=== PATIENT | female | born 1945 | race African-American/Black ===

== ENCOUNTER 2021-09-13 10:13 | Inpatient (IN) ==
[2021-09-13] MEDS ORDERED: ONDANSETRON 4 MG/2 ML VIAL IV STA (10:41)
[2021-09-13] MEDS ORDERED: SODIUM CHLORIDE 0.9% 1,000 ML IV STA (10:41)
[2021-09-13 11:28] LABS: Basophils % 0.3 % (0.0-0.8); Eosinophils % 0.1 % (0.00-10.9); Hematocrit 37.1 VOL% (35.7-47.0); Hemoglobin 11.8 GM/DL (12.0-16.0); Immature Granulocytes % 0.5 %; Immature Granulocytes Absolute 0.07 #; Lymphocytes # 1.4 10*3/uL (1.4-4.0); Lymphocytes % 9.4 % (21.3-54.2); Mean Corpuscular HGB Conc 31.8 GM/DL (32-36); Mean Corpuscular Volume 72.7 FL (87-102); Mean Platelet Volume 9.2 FL (9.6-12.0); Monocytes % 6.4 % (1.7-12.7); Neutrophils % 83.3 % (38.7-73.9); Platelet Count 457 T/CUMM (130-400); Red Cell Distribution Width 16.2 % (9.3-17.3); White Blood Count 15.2 T/CUMM (4-12)
[2021-09-13 11:37] LABS: Bilirubin,Urine Negative (Negative); Blood, Urine Small mg/dL (Negative); Glucose,Urine (UA) Negative (Negative); Ketones,Urine Negative (Negative); Mucus,Urine Many /LPF (Occasional); Nitrite,Urine Negative (Negative); Protein,Urine 30 MG/DL; RBC,Urine 7 /HPF (0-4); Squamous Epithelial Cell,Urine Moderate /HPF (0-10); Urine Appearance CLOUDY (Clear); Urine Color Amber (Yellow); Urine Specific Gravity 1.027 (1.001-1.035)
[2021-09-13 11:50] LABS: Albumin 3.1 G/DL (3.4-5.0); Bilirubin,Total 0.4 MG/DL (0.20-1.00); Calcium 10.1 MG/DL (8.5-10.1); Osmolality,Calculated 282.4 MOS/KG (273-304); Potassium 3.3 MMOL/L (3.5-5.1); Total Protein 8.6 G/DL (6.4-8.2)
[2021-09-13] MEDS ORDERED: cefTRIAXone 1,000 MG in SODIUM CHLORIDE 0.9% 100 ML IV STA (11:55)
[2021-09-13] MEDS ORDERED: ACETAMINOPHEN 325 MG TABLET PO PRN (12:17)
[2021-09-13] MEDS ORDERED: DEXTROSE 50% 25 GM/50 ML VIAL IV PRN (12:17)
[2021-09-13] MEDS ORDERED: GLUCAGON 1 MG VIAL IM PRN (12:17)
[2021-09-13] MEDS ORDERED: hydrALAZINE 20 MG/1 ML VIAL IV PRN (12:17)
[2021-09-13] MEDS ORDERED: POLYETHYLENE GLYCOL POWDER 255 GM BOTTLE PO ONE (13:24)
[2021-09-13] MEDS ORDERED: BISACODYL 5 MG TABLET PO ONE (13:25)
[2021-09-13 13:42] LABS: Risk Ratio 4.27; Thyroid Stimulating Hormone 1.69 uIU/ml (0.358-3.74); VLDL Cholesterol 27.2 MG/DL
[2021-09-13] MEDS: SODIUM CHLOR 0.45% KCL 20 MEQ 20 MEQ/1,000 ML BAG IV SCH (16:20)
[2021-09-13] MEDS: ONDANSETRON 4 MG/2 ML VIAL IV PRN (18:41)
[2021-09-14] MEDS: SODIUM CHLOR 0.45% KCL 20 MEQ 20 MEQ/1,000 ML BAG IV SCH ×3 (00:41→20:04)
[2021-09-14] MEDS: ONDANSETRON 4 MG/2 ML VIAL IV PRN ×5 (00:45→22:19)
[2021-09-14 06:01] LABS: Basophils % 0.2 % (0.0-0.8); Hematocrit 33.9 VOL% (35.7-47.0); Hemoglobin 10.8 GM/DL (12.0-16.0); Immature Granulocytes % 0.5 %; Immature Granulocytes Absolute 0.07 #; Lymphocytes % 7.9 % (21.3-54.2); Mean Corpuscular HGB Conc 31.9 GM/DL (32-36); Mean Platelet Volume 9.8 FL (9.6-12.0); Monocytes % 6.5 % (1.7-12.7); Neutrophils % 84.9 % (38.7-73.9); Platelet Count 420 T/CUMM (130-400); Red Blood Count 4.58 MC/CUMM (3.8-5.5); Red Cell Distribution Width 16.3 % (9.3-17.3); White Blood Count 12.9 T/CUMM (4-12)
[2021-09-14 06:14] LABS: Osmolality,Calculated 278.5 MOS/KG (273-304); Potassium 3.1 MMOL/L (3.5-5.1)
[2021-09-14] MEDS ORDERED: POLYETHYLENE GLYCOL POWDER 255 GM BOTTLE PO ONE (08:00)
[2021-09-14] MEDS ORDERED: cefTRIAXone 1,000 MG in SODIUM CHLORIDE 0.9% 100 ML IV SCH (09:00)
[2021-09-14] MEDS: POTASSIUM CHLORIDE RIDER 10 MEQ/100 ML PREMIX IV PRN ×4 (10:33→16:56)
[2021-09-14 12:37] LABS: AFP Tumor < 2.2 NG/ML (0-8)
[2021-09-14] MEDS ORDERED: MAGNESIUM CITRATE 300 ML BOTTLE PO ONE (21:00)
[2021-09-15] MEDS: SODIUM CHLOR 0.45% KCL 20 MEQ 20 MEQ/1,000 ML BAG IV SCH (02:56)
[2021-09-15 04:32] LABS: Basophils % 0.2 % (0.0-0.8); Hematocrit 37.2 VOL% (35.7-47.0); Hemoglobin 11.9 GM/DL (12.0-16.0); Immature Granulocytes % 0.6 %; Immature Granulocytes Absolute 0.12 #; Lymphocytes # 1.4 10*3/uL (1.4-4.0); Lymphocytes % 7.7 % (21.3-54.2); Mean Corpuscular Volume 73.5 FL (87-102); Monocytes % 7.9 % (1.7-12.7); Neutrophils % 83.6 % (38.7-73.9); Platelet Count 463 T/CUMM (130-400); Red Blood Count 5.06 MC/CUMM (3.8-5.5); Red Cell Distribution Width 16.8 % (9.3-17.3); White Blood Count 18.6 T/CUMM (4-12)
[2021-09-15 04:42] LABS: PT Patient Result 11.5 SECS (10.5-12.0)
[2021-09-15 04:50] LABS: Calcium 9.2 MG/DL (8.5-10.1); Osmolality,Calculated 274.1 MOS/KG (273-304); Potassium 4.7 MMOL/L (3.5-5.1)
[2021-09-15] MEDS ORDERED: SODIUM PHOSPHATE ENEMA 133 ML BOTTLE RECTAL ONE (06:00)
[2021-09-15] MEDS ORDERED: PIPERACILLIN/TAZOBACTAM 3,375 MG in SODIUM CHLORIDE 0.9% 100 ML IV SCH (07:30)
[2021-09-15] MEDS: ONDANSETRON 4 MG/2 ML VIAL IV PRN (07:54)
[2021-09-15] MEDS ORDERED: SODIUM CHLORIDE 0.9% 1,000 ML IV SCH (08:00)
[2021-09-15] MEDS: SODIUM CHLORIDE 0.9% 1,000 ML IV SCH ×2 (09:35→17:55)
[2021-09-15] MEDS: PIPERACILLIN/TAZOBACTAM 3,375 MG in SODIUM CHLORIDE 0.9% 100 ML IV SCH ×2 (09:36→17:55)
[2021-09-15] MEDS ORDERED: fentaNYL 100 MCG/2 ML VIAL ONE ×2 (12:20→16:09)
[2021-09-15] MEDS ORDERED: ROCURONIUM 50 MG/5 ML VIAL IV ONE ×2 (12:59→15:58)
[2021-09-15] MEDS ORDERED: ETOMIDATE 20 MG/10 ML VIAL IV ONE ×3 (12:59→15:06)
[2021-09-15] MEDS ORDERED: SUCCINYLCHOLINE 200 MG/10 ML VIAL ONE ×2 (12:59→14:57)
[2021-09-15] MEDS ORDERED: ONDANSETRON 4 MG/2 ML VIAL ONE (12:59)
[2021-09-15] MEDS ORDERED: SEVOFLURANE 1 UNIT/15 MINUTE INH ONE ×2 (12:59→17:58)
[2021-09-15] MEDS ORDERED: propofoL 200 MG/20 ML VIAL IV ONE ×2 (12:59→15:07)
[2021-09-15] MEDS ORDERED: LIDOCAINE 2% 5 ML VIAL ONE (12:59)
[2021-09-15] MEDS ORDERED: DEXAMETHASONE 4 MG/1 ML VIAL ONE (12:59)
[2021-09-15] MEDS ORDERED: PHENYLEPHRINE 1 MG/10 ML SYRINGE IV ONE (13:00)
[2021-09-15] MEDS ORDERED: ONDANSETRON 4 MG/2 ML VIAL IV ONE (13:59)
[2021-09-15] MEDS ORDERED: ESMOLOL 100 MG/10 ML VIAL IV ONE (14:00)
[2021-09-15] MEDS ORDERED: LACTATED RINGERS 1,000 ML IV SCH (14:30)
[2021-09-15] MEDS ORDERED: SUCCINYLCHOLINE 200 MG/10 ML VIAL IV ONE (15:08)
[2021-09-15] MEDS ORDERED: MIDAZOLAM 100 MG in SODIUM CHLORIDE 0.9% 80 ML IV PRN (15:23)
[2021-09-15] MEDS ORDERED: MIDAZOLAM 2 MG/2 ML VIAL ONE ×2 (15:25)
[2021-09-15] MEDS ORDERED: SODIUM CHLORIDE 0.9% 250 ML IV ONE (15:51)
[2021-09-15] MEDS ORDERED: PHENYLEPHRINE 10 MG/1 ML VIAL IV ONE ×2 (15:51→16:06)
[2021-09-15] MEDS ORDERED: METHYLENE BLUE 10 ML VIAL IV ONE (16:32)
[2021-09-15 18:11] LABS: Bilirubin,Urine Negative (Negative); Blood, Urine Negative (Negative); Glucose,Urine (UA) Negative (Negative); Hyaline Casts,Urine 14 /LPF (0-3); Ketones,Urine 20 mg/dL (Negative); Mucus,Urine Occasional /LPF (Occasional); Nitrite,Urine Negative (Negative); Protein,Urine Negative; RBC,Urine 1 /HPF (0-4); Squamous Epithelial Cell,Urine Occasional /HPF (0-10); Urine Appearance CLEAR (Clear); Urine Color Yellow (Yellow); Urine Specific Gravity 1.024 (1.001-1.035); Urine Urobilinogen < 2.0 EU/DL (0.2-1.0)
[2021-09-15] MEDS: INSULIN LISPRO 100 UNIT/ML SUBCUT SCH ×2 (18:11→23:21)
[2021-09-15 18:16] LABS: Basophils % 0.1 % (0.0-0.8); Eosinophils % 0.1 % (0.00-10.9); Hematocrit 35.6 VOL% (35.7-47.0); Immature Granulocytes % 1.1 %; Immature Granulocytes Absolute 0.22 #; Lymphocytes # 0.8 10*3/uL (1.4-4.0); Lymphocytes % 4.1 % (21.3-54.2); Mean Corpuscular HGB Conc 30.9 GM/DL (32-36); Mean Corpuscular Volume 74.3 FL (87-102); Mean Platelet Volume 9.2 FL (9.6-12.0); Monocytes % 5.7 % (1.7-12.7); NRBC # 0.02 10*3/uL; Neutrophils % 88.9 % (38.7-73.9); Platelet Count 488 T/CUMM (130-400); Red Blood Count 4.79 MC/CUMM (3.8-5.5); White Blood Count 19.3 T/CUMM (4-12)
[2021-09-15 18:28] LABS: Alanine Aminotransferase 15 U/L (13-56); Albumin 2.2 G/DL (3.4-5.0); Alkaline Phosphatase 103 U/L (45-117); Aspartate Amino Transferase 46 U/L (0-37); Blood Urea Nitrogen 28 MG/DL (7-18); Calcium 8.5 MG/DL (8.5-10.1); Carbon Dioxide 19 MMOL/L (21-32); Estimated Glom Filtration Rate 25 ML/MIN; Glucose 151 MG/DL (74-106); Sodium 136 MMOL/L (136-145); Total Protein 6.4 G/DL (6.4-8.2)
[2021-09-15 18:31] LABS: ABG Base Excess -10.2 MMOL/L (-2.5-2.5); ABG HCO3 16.4 MMOL/L (20-26); ABG PCO2 34.8 MM HG (35-48); ABG PO2 94.1 MM HG (80-95); ABG TCO2 14.4 MMOL/L (23-27)
[2021-09-15] MEDS ORDERED: INSULIN REGULAR 10 UNIT, CALCIUM GLUCONATE 1,000 MG in DEXTROSE 10% 250 ML IV ONE (18:35)
[2021-09-15 18:37] LABS: Band Neutrophils 10 % (0-10); Lymphocytes 3 % (20-55); Metamyelocytes 1 %; Segmented Neutrophils 81 % (50-85); Total Cells Counted 100
[2021-09-15] MEDS ORDERED: FUROSEMIDE 40 MG/4 ML VIAL IV ONE (18:43)
[2021-09-15 18:47] LABS: Microcytosis 1+; Polychromasia Slight
[2021-09-15 18:48] LABS: Burr Cells Slight; Ovalocytes Slight; Platelet Estimate Increased
[2021-09-15] MEDS: HYDROmorphone 2 MG/1 ML VIAL IV PRN (21:37)
[2021-09-15 22:11] LABS: Potassium 4.7 MMOL/L (3.5-5.1)
[2021-09-15] MEDS ORDERED: SODIUM CHLORIDE 0.9% 1,000 ML IV ONE (22:33)
[2021-09-16] MEDS: PIPERACILLIN/TAZOBACTAM 3,375 MG in SODIUM CHLORIDE 0.9% 100 ML IV SCH ×3 (01:25→16:28)
[2021-09-16] MEDS: SODIUM CHLORIDE 0.9% 1,000 ML IV SCH ×2 (02:57→08:40)
[2021-09-16 03:27] LABS: Basophils % 0.2 % (0.0-0.8); Hematocrit 34.1 VOL% (35.7-47.0); Hemoglobin 10.7 GM/DL (12.0-16.0); Immature Granulocytes % 0.4 %; Immature Granulocytes Absolute 0.07 #; Lymphocytes # 1.3 10*3/uL (1.4-4.0); Lymphocytes % 8.1 % (21.3-54.2); Mean Corpuscular HGB Conc 31.4 GM/DL (32-36); Mean Corpuscular Volume 74.6 FL (87-102); Mean Platelet Volume 9.6 FL (9.6-12.0); Monocytes % 12.4 % (1.7-12.7); Neutrophils % 78.9 % (38.7-73.9); Platelet Count 420 T/CUMM (130-400); Red Blood Count 4.57 MC/CUMM (3.8-5.5); Red Cell Distribution Width 16.8 % (9.3-17.3); White Blood Count 16.3 T/CUMM (4-12)
[2021-09-16 03:57] LABS: Calcium 8.3 MG/DL (8.5-10.1); Osmolality,Calculated 281.5 MOS/KG (273-304); Potassium 5.2 MMOL/L (3.5-5.1)
[2021-09-16 04:02] LABS: Band Neutrophils 7 % (0-10); Hypochromasia 1+; Lymphocytes 6 % (20-55); Microcytosis 1+; Polychromasia Slight; Segmented Neutrophils 72 % (50-85); Total Cells Counted 100
[2021-09-16 04:56] LABS: ABG Base Excess -5.2 MMOL/L (-2.5-2.5); ABG HCO3 20.1 MMOL/L (20-26); ABG Oxygen Saturation 99.8 % (95-100); ABG PH 7.391 (7.35-7.45); ABG TCO2 16.9 MMOL/L (23-27)
[2021-09-16] MEDS: INSULIN LISPRO 100 UNIT/ML SUBCUT SCH ×4 (05:08→23:37)
[2021-09-16] MEDS ORDERED: SODIUM CHLORIDE 0.9% 1,000 ML IV ONE ×2 (05:12→11:20)
[2021-09-16] MEDS: HYDROmorphone 2 MG/1 ML VIAL IV PRN ×3 (05:58→22:52)
[2021-09-16] MEDS ORDERED: INSULIN REGULAR 10 UNIT, CALCIUM GLUCONATE 1,000 MG in DEXTROSE 10% 250 ML IV ONE (09:51)
[2021-09-16] MEDS: DEXTROSE 5% NACL 0.45% 1,000 ML IV SCH ×2 (10:22→18:33)
[2021-09-16] MEDS: PANTOPRAZOLE 40 MG VIAL IV SCH (10:35)
[2021-09-16] MEDS ORDERED: ALBUMIN 25% 25 GM/100 ML VIAL IV ONE (11:20)
[2021-09-16 13:39] LABS: ABG Base Excess -8.3 MMOL/L (-2.5-2.5); ABG HCO3 17.7 MMOL/L (20-26); ABG Oxygen Saturation 97.8 % (95-100); ABG PCO2 32.8 MM HG (35-48); ABG PH 7.321 (7.35-7.45); ABG TCO2 15.8 MMOL/L (23-27)
[2021-09-16 15:08] LABS: Calcium 8.2 MG/DL (8.5-10.1); Osmolality,Calculated 285.4 MOS/KG (273-304); Potassium 4.6 MMOL/L (3.5-5.1)
[2021-09-17] MEDS: PIPERACILLIN/TAZOBACTAM 3,375 MG in SODIUM CHLORIDE 0.9% 100 ML IV SCH ×3 (00:38→16:02)
[2021-09-17] MEDS: DEXTROSE 5% NACL 0.45% 1,000 ML IV SCH ×2 (03:17→11:49)
[2021-09-17 04:06] LABS: % Iron Saturation 6.4 % (18-50); Bilirubin,Total 0.4 MG/DL (0.20-1.00); Calcium 7.8 MG/DL (8.5-10.1); Ferritin 652.7 ng/mL (8-252); Osmolality,Calculated 287.5 MOS/KG (273-304); Potassium 4.1 MMOL/L (3.5-5.1); Total Protein 5.3 G/DL (6.4-8.2)
[2021-09-17 04:17] LABS: ABG Base Excess -7.9 MMOL/L (-2.5-2.5); ABG HCO3 16.4 MMOL/L (20-26); ABG Oxygen Saturation 93.6 % (95-100); ABG PCO2 29.1 MM HG (35-48); ABG PH 7.368 (7.35-7.45); ABG PO2 69.2 MM HG (80-95); ABG TCO2 17.3 MMOL/L (23-27)
[2021-09-17 04:21] LABS: Basophils % 0.1 % (0.0-0.8); Hematocrit 28.4 VOL% (35.7-47.0); Immature Granulocytes % 0.4 %; Immature Granulocytes Absolute 0.04 #; Lymphocytes # 0.9 10*3/uL (1.4-4.0); Lymphocytes % 9.7 % (21.3-54.2); Mean Corpuscular HGB Conc 31.7 GM/DL (32-36); Mean Corpuscular Volume 73.4 FL (87-102); Mean Platelet Volume 9.2 FL (9.6-12.0); Monocytes % 9.7 % (1.7-12.7); Neutrophils % 80.1 % (38.7-73.9); Red Blood Count 3.87 MC/CUMM (3.8-5.5); Red Cell Distribution Width 16.7 % (9.3-17.3)
[2021-09-17 04:25] LABS: Platelet Count 266 T/CUMM (130-400); White Blood Count 9.2 T/CUMM (4-12)
[2021-09-17 05:04] LABS: Band Neutrophils 10 % (0-10); Hypochromasia 1+; Lymphocytes 4 % (20-55); Segmented Neutrophils 75 % (50-85); Total Cells Counted 100
[2021-09-17 05:05] LABS: Microcytosis 1+
[2021-09-17] MEDS: INSULIN LISPRO 100 UNIT/ML SUBCUT SCH ×3 (05:50→18:03)
[2021-09-17] MEDS: PANTOPRAZOLE 40 MG VIAL IV SCH (08:29)
[2021-09-17] MEDS: HYDROmorphone 2 MG/1 ML VIAL IV PRN ×2 (10:06→16:23)
[2021-09-17] MEDS: HYDROCORTISONE 100 MG VIAL IV SCH ×2 (11:46→18:03)
[2021-09-17] MEDS: SODIUM BICARB INJ 100 MEQ in DEXTROSE 5% 1,000 ML IV SCH ×2 (11:48→22:49)
[2021-09-17] MEDS ORDERED: LACTATED RINGERS 1,000 ML IV ONE (12:11)
[2021-09-17] MEDS: ARFORMOTEROL 15 MCG/2 ML NEB RESP TX SCH ×2 (14:40→21:28)
[2021-09-18] MEDS: INSULIN LISPRO 100 UNIT/ML SUBCUT SCH ×5 (00:01→23:37)
[2021-09-18] MEDS: PIPERACILLIN/TAZOBACTAM 3,375 MG in SODIUM CHLORIDE 0.9% 100 ML IV SCH ×3 (00:04→17:33)
[2021-09-18] MEDS: HYDROCORTISONE 100 MG VIAL IV SCH ×3 (03:32→21:16)
[2021-09-18 03:53] LABS: Basophils % 0.1 % (0.0-0.8); Hematocrit 25.3 VOL% (35.7-47.0); Immature Granulocytes % 0.6 %; Immature Granulocytes Absolute 0.07 #; Lymphocytes # 0.8 10*3/uL (1.4-4.0); Mean Corpuscular HGB Conc 31.6 GM/DL (32-36); Mean Corpuscular Volume 72.5 FL (87-102); Mean Platelet Volume 10.1 FL (9.6-12.0); Monocytes % 8.4 % (1.7-12.7); NRBC # 0.02 10*3/uL; Neutrophils % 83.9 % (38.7-73.9); Platelet Count 241 T/CUMM (130-400); Red Blood Count 3.49 MC/CUMM (3.8-5.5); Red Cell Distribution Width 16.6 % (9.3-17.3); White Blood Count 10.9 T/CUMM (4-12)
[2021-09-18 04:09] LABS: Alanine Aminotransferase 27 U/L (13-56); Albumin 1.7 G/DL (3.4-5.0); Alkaline Phosphatase 130 U/L (45-117); Aspartate Amino Transferase 158 U/L (0-37); Bilirubin,Total < 0.39 MG/DL (0.20-1.00); Blood Urea Nitrogen 28 MG/DL (7-18); Calcium 7.8 MG/DL (8.5-10.1); Carbon Dioxide 24 MMOL/L (21-32); Estimated Glom Filtration Rate 30 ML/MIN; Glucose 141 MG/DL (74-106); Osmolality,Calculated 290.1 MOS/KG (273-304); Sodium 142 MMOL/L (136-145); Total Protein 5.2 G/DL (6.4-8.2)
[2021-09-18 04:15] LABS: Band Neutrophils 3 % (0-10); Lymphocytes 7 % (20-55); Platelet Estimate Adequate; Segmented Neutrophils 87 % (50-85); Total Cells Counted 100
[2021-09-18 04:16] LABS: Hypochromasia 1+; Microcytosis 1+; Ovalocytes Slight
[2021-09-18] MEDS: POTASSIUM CHLORIDE RIDER 20 MEQ/100 ML PREMIX IV PRN ×3 (04:28→12:11)
[2021-09-18 04:52] LABS: Allen Test Positive
[2021-09-18 04:53] LABS: ABG Base Excess -2.2 MMOL/L (-2.5-2.5); ABG HCO3 21.3 MMOL/L (20-26); ABG Oxygen Saturation 95.3 % (95-100); ABG PCO2 31.5 MM HG (35-48); ABG PH 7.447 (7.35-7.45); ABG PO2 74.1 MM HG (80-95); ABG TCO2 22.2 MMOL/L (23-27)
[2021-09-18] MEDS: POTASSIUM CHLORIDE RIDER 10 MEQ/100 ML PREMIX IV PRN (06:28)
[2021-09-18] MEDS: ARFORMOTEROL 15 MCG/2 ML NEB RESP TX SCH ×2 (07:00→20:25)
[2021-09-18] MEDS: HYDROmorphone 2 MG/1 ML VIAL IV PRN ×3 (08:51→21:16)
[2021-09-18] MEDS: PANTOPRAZOLE 40 MG VIAL IV SCH (08:52)
[2021-09-18] MEDS: SODIUM BICARB INJ 100 MEQ in DEXTROSE 5% 1,000 ML IV SCH (09:49)
[2021-09-18] MEDS ORDERED: SODIUM BICARB INJ 50 MEQ in DEXTROSE 5% 1,000 ML IV SCH (10:00)
[2021-09-18] MEDS: DEXTROSE 5% NACL 0.45% 1,000 ML IV SCH (11:48)
[2021-09-18 17:38] LABS: Calcium 7.9 MG/DL (8.5-10.1); Osmolality,Calculated 286.3 MOS/KG (273-304); Potassium 3.4 MMOL/L (3.5-5.1)
[2021-09-19] MEDS: PIPERACILLIN/TAZOBACTAM 3,375 MG in SODIUM CHLORIDE 0.9% 100 ML IV SCH ×4 (00:41→21:20)
[2021-09-19] MEDS: DEXTROSE 5% NACL 0.45% 1,000 ML IV SCH ×2 (01:44→21:17)
[2021-09-19 05:07] LABS: Basophils % 0.1 % (0.0-0.8); Hematocrit 25.3 VOL% (35.7-47.0); Hemoglobin 8.2 GM/DL (12.0-16.0); Immature Granulocytes % 0.8 %; Immature Granulocytes Absolute 0.09 #; Lymphocytes # 0.6 10*3/uL (1.4-4.0); Mean Corpuscular HGB Conc 32.4 GM/DL (32-36); Mean Corpuscular Volume 71.3 FL (87-102); Mean Platelet Volume 9.8 FL (9.6-12.0); Monocytes % 9.8 % (1.7-12.7); NRBC # 0.02 10*3/uL; Neutrophils % 84.3 % (38.7-73.9); Platelet Count 280 T/CUMM (130-400); Red Blood Count 3.55 MC/CUMM (3.8-5.5); Red Cell Distribution Width 16.3 % (9.3-17.3)
[2021-09-19 05:28] LABS: Hypochromasia 1+; Lymphocytes 5 % (20-55); Microcytosis 1+; Nucleated Red Blood Cells 1 (0-5); Platelet Estimate Adequate; Segmented Neutrophils 90 % (50-85); Total Cells Counted 100
[2021-09-19 05:30] LABS: Albumin 1.7 G/DL (3.4-5.0); Bilirubin,Total 0.8 MG/DL (0.20-1.00); Osmolality,Calculated 286.3 MOS/KG (273-304); Potassium 3.1 MMOL/L (3.5-5.1); Total Protein 5.4 G/DL (6.4-8.2)
[2021-09-19] MEDS: INSULIN LISPRO 100 UNIT/ML SUBCUT SCH ×3 (05:39→17:30)
[2021-09-19] MEDS: POTASSIUM CHLORIDE RIDER 20 MEQ/100 ML PREMIX IV PRN ×2 (05:43→07:50)
[2021-09-19] MEDS: ARFORMOTEROL 15 MCG/2 ML NEB RESP TX SCH ×2 (08:30→19:34)
[2021-09-19] MEDS: HYDROCORTISONE 100 MG VIAL IV SCH ×2 (09:28→21:17)
[2021-09-19] MEDS: PANTOPRAZOLE 40 MG VIAL IV SCH (09:29)
[2021-09-19] MEDS: HYDROmorphone 2 MG/1 ML VIAL IV PRN ×2 (09:42→20:20)
[2021-09-20] MEDS: INSULIN LISPRO 100 UNIT/ML SUBCUT SCH ×4 (01:38→18:11)
[2021-09-20 05:47] LABS: Basophils % 0.1 % (0.0-0.8); Hematocrit 27.2 VOL% (35.7-47.0); Hemoglobin 8.7 GM/DL (12.0-16.0); Immature Granulocytes % 1.1 %; Immature Granulocytes Absolute 0.18 #; Lymphocytes % 6.1 % (21.3-54.2); Mean Corpuscular Volume 72.5 FL (87-102); Mean Platelet Volume 9.9 FL (9.6-12.0); Monocytes % 8.4 % (1.7-12.7); NRBC # 0.05 10*3/uL; Neutrophils % 84.3 % (38.7-73.9); Platelet Count 359 T/CUMM (130-400); Red Blood Count 3.75 MC/CUMM (3.8-5.5); Red Cell Distribution Width 16.5 % (9.3-17.3); White Blood Count 16.3 T/CUMM (4-12)
[2021-09-20] MEDS: PIPERACILLIN/TAZOBACTAM 3,375 MG in SODIUM CHLORIDE 0.9% 100 ML IV SCH ×3 (05:51→22:40)
[2021-09-20 06:13] LABS: Calcium 8.2 MG/DL (8.5-10.1); Potassium 3.2 MMOL/L (3.5-5.1)
[2021-09-20 06:20] LABS: Band Neutrophils 1 % (0-10); Hypochromasia 1+; Lymphocytes 5 % (20-55); Metamyelocytes 1 %; Segmented Neutrophils 85 % (50-85); Total Cells Counted 100
[2021-09-20 06:21] LABS: Microcytosis 1+; Polychromasia Slight; Target Cells Slight
[2021-09-20] MEDS: ARFORMOTEROL 15 MCG/2 ML NEB RESP TX SCH ×2 (07:28→19:55)
[2021-09-20] MEDS: PANTOPRAZOLE 40 MG VIAL IV SCH (09:14)
[2021-09-20] MEDS: POTASSIUM CHLORIDE RIDER 20 MEQ/100 ML PREMIX IV PRN ×3 (09:14→20:33)
[2021-09-20] MEDS: HYDROCORTISONE 100 MG VIAL IV SCH ×2 (09:19→22:36)
[2021-09-20] MEDS: amLODIPine 5 MG TABLET PO SCH (17:26)
[2021-09-20] MEDS: HYDROmorphone 2 MG/1 ML VIAL IV PRN (17:32)
[2021-09-20] MEDS ORDERED: POTASSIUM CHLORIDE 20 MEQ PACK PO ONE (19:54)
[2021-09-20] MEDS: ONDANSETRON 4 MG/2 ML VIAL IV PRN (20:25)
[2021-09-21] MEDS: HYDROmorphone 2 MG/1 ML VIAL IV PRN ×2 (00:18→21:11)
[2021-09-21] MEDS: INSULIN LISPRO 100 UNIT/ML SUBCUT SCH ×5 (00:26→23:52)
[2021-09-21] MEDS: POTASSIUM CHLORIDE RIDER 20 MEQ/100 ML PREMIX IV PRN ×2 (02:53→11:16)
[2021-09-21 05:01] LABS: Basophils % 0.1 % (0.0-0.8); Hematocrit 24.7 VOL% (35.7-47.0); Hemoglobin 7.7 GM/DL (12.0-16.0); Immature Granulocytes % 2.4 %; Immature Granulocytes Absolute 0.42 #; Lymphocytes # 0.9 10*3/uL (1.4-4.0); Mean Corpuscular HGB Conc 31.2 GM/DL (32-36); Mean Corpuscular Volume 72.9 FL (87-102); Mean Platelet Volume 9.3 FL (9.6-12.0); NRBC # 0.03 10*3/uL; Neutrophils % 85.5 % (38.7-73.9); Platelet Count 329 T/CUMM (130-400); Red Blood Count 3.39 MC/CUMM (3.8-5.5); Red Cell Distribution Width 16.9 % (9.3-17.3); White Blood Count 17.3 T/CUMM (4-12)
[2021-09-21 05:23] LABS: Calcium 7.8 MG/DL (8.5-10.1); Osmolality,Calculated 288.7 MOS/KG (273-304); Potassium 3.8 MMOL/L (3.5-5.1)
[2021-09-21] MEDS: PIPERACILLIN/TAZOBACTAM 3,375 MG in SODIUM CHLORIDE 0.9% 100 ML IV SCH ×3 (05:27→22:48)
[2021-09-21] MEDS: ARFORMOTEROL 15 MCG/2 ML NEB RESP TX SCH ×2 (07:27→19:47)
[2021-09-21] MEDS: amLODIPine 5 MG TABLET PO SCH (08:46)
[2021-09-21] MEDS: PANTOPRAZOLE 40 MG VIAL IV SCH (08:47)
[2021-09-21] MEDS: HYDROCORTISONE 100 MG VIAL IV SCH ×2 (09:34→22:45)
[2021-09-21] MEDS: DEXTROSE 5% NACL 0.45% 1,000 ML IV SCH (11:17)
[2021-09-21 20:07] LABS: Bilirubin,Urine Negative (Negative); Blood, Urine Negative (Negative); Glucose,Urine (UA) Negative (Negative); Ketones,Urine Negative (Negative); Mucus,Urine Occasional /LPF (Occasional); Nitrite,Urine Negative (Negative); Protein,Urine Negative; RBC,Urine 3 /HPF (0-4); Squamous Epithelial Cell,Urine Occasional /HPF (0-10); Urine Appearance CLOUDY (Clear); Urine Color Yellow (Yellow); Urine Specific Gravity 1.013 (1.001-1.035); Urine Urobilinogen < 2.0 EU/DL (0.2-1.0)
[2021-09-22 04:29] LABS: Basophils % 0.1 % (0.0-0.8); Hemoglobin 7.4 GM/DL (12.0-16.0); Immature Granulocytes % 3.9 %; Immature Granulocytes Absolute 0.72 #; Lymphocytes % 5.5 % (21.3-54.2); Mean Corpuscular HGB Conc 30.8 GM/DL (32-36); Mean Corpuscular Volume 73.4 FL (87-102); Mean Platelet Volume 9.3 FL (9.6-12.0); Monocytes % 7.3 % (1.7-12.7); NRBC # 0.02 10*3/uL; Neutrophils % 83.2 % (38.7-73.9); Platelet Count 341 T/CUMM (130-400); Red Blood Count 3.27 MC/CUMM (3.8-5.5); White Blood Count 18.3 T/CUMM (4-12)
[2021-09-22 04:58] LABS: Albumin 1.6 G/DL (3.4-5.0); Bilirubin,Total 1.5 MG/DL (0.20-1.00); Calcium 8.1 MG/DL (8.5-10.1); Osmolality,Calculated 291.4 MOS/KG (273-304); Potassium 2.9 MMOL/L (3.5-5.1); Total Protein 5.5 G/DL (6.4-8.2)
[2021-09-22 05:11] LABS: Hypochromasia Slight; Lymphocytes 9 % (20-55); Platelet Estimate Normal; Segmented Neutrophils 87 % (50-85); Total Cells Counted 100
[2021-09-22 05:12] LABS: Microcytosis 1+
[2021-09-22] MEDS: POTASSIUM CHLORIDE RIDER 20 MEQ/100 ML PREMIX IV PRN ×2 (05:22→08:25)
[2021-09-22] MEDS: INSULIN LISPRO 100 UNIT/ML SUBCUT SCH ×3 (05:53→18:03)
[2021-09-22] MEDS: ARFORMOTEROL 15 MCG/2 ML NEB RESP TX SCH ×2 (07:10→19:59)
[2021-09-22] MEDS: PIPERACILLIN/TAZOBACTAM 3,375 MG in SODIUM CHLORIDE 0.9% 100 ML IV SCH ×2 (08:28→17:50)
[2021-09-22] MEDS ORDERED: POTASSIUM CHLORIDE 20 MEQ TABLET PO ONE (09:06)
[2021-09-22] MEDS: POTASSIUM CHLORIDE INJ 40 MEQ in SODIUM CHLORIDE 0.45% 1,000 ML IV SCH ×2 (09:41→23:39)
[2021-09-22] MEDS: PANTOPRAZOLE 40 MG VIAL IV SCH (09:42)
[2021-09-22] MEDS: HYDROCORTISONE 100 MG VIAL IV SCH ×2 (09:43→21:35)
[2021-09-22] MEDS: amLODIPine 5 MG TABLET PO SCH (12:15)
[2021-09-22] MEDS: DEXTROSE 5% NACL 0.45% 1,000 ML IV SCH (12:27)
[2021-09-22] MEDS: LACTATED RINGERS 1,000 ML IV SCH (21:35)
[2021-09-23] MEDS: PIPERACILLIN/TAZOBACTAM 3,375 MG in SODIUM CHLORIDE 0.9% 100 ML IV SCH ×3 (00:57→16:32)
[2021-09-23] MEDS: INSULIN LISPRO 100 UNIT/ML SUBCUT SCH ×4 (01:42→18:27)
[2021-09-23 06:11] LABS: Basophils % 0.1 % (0.0-0.8); Hematocrit 22.3 VOL% (35.7-47.0); Hemoglobin 7.4 GM/DL (12.0-16.0); Immature Granulocytes % 3.2 %; Immature Granulocytes Absolute 0.56 #; Lymphocytes % 5.6 % (21.3-54.2); Mean Corpuscular HGB Conc 33.2 GM/DL (32-36); Mean Corpuscular Volume 71.2 FL (87-102); Mean Platelet Volume 8.9 FL (9.6-12.0); Monocytes % 6.5 % (1.7-12.7); NRBC # 0.02 10*3/uL; Neutrophils % 84.6 % (38.7-73.9); Platelet Count 348 T/CUMM (130-400); Red Blood Count 3.13 MC/CUMM (3.8-5.5); Red Cell Distribution Width 17.1 % (9.3-17.3); White Blood Count 17.3 T/CUMM (4-12)
[2021-09-23 06:26] LABS: Alanine Aminotransferase 12 U/L (13-56); Albumin 1.5 G/DL (3.4-5.0); Alkaline Phosphatase 117 U/L (45-117); Aspartate Amino Transferase 30 U/L (0-37); Bilirubin,Total < 0.39 MG/DL (0.20-1.00); Blood Urea Nitrogen 10 MG/DL (7-18); Carbon Dioxide 21 MMOL/L (21-32); Estimated Glom Filtration Rate 63 ML/MIN; Glucose 126 MG/DL (74-106); Osmolality,Calculated 288.7 MOS/KG (273-304); Potassium 3.5 MMOL/L (3.5-5.1); Sodium 145 MMOL/L (136-145); Total Protein 5.3 G/DL (6.4-8.2)
[2021-09-23 07:10] LABS: Hypochromasia 3+; Lymphocytes 10 % (20-55); Microcytosis 2+; Platelet Estimate Normal; Polychromasia Slight; Schistocytes Slight; Segmented Neutrophils 81 % (50-85); Target Cells Few; Total Cells Counted 100
[2021-09-23] MEDS: ARFORMOTEROL 15 MCG/2 ML NEB RESP TX SCH ×2 (07:30→19:40)
[2021-09-23] MEDS: HYDROCORTISONE 100 MG VIAL IV SCH ×2 (09:58→20:41)
[2021-09-23] MEDS: PANTOPRAZOLE 40 MG VIAL IV SCH (10:00)
[2021-09-23] MEDS: SPIRONOLACTONE 25 MG TABLET PO SCH (10:00)
[2021-09-23] MEDS: amLODIPine 5 MG TABLET PO SCH (10:00)
[2021-09-23] MEDS: POTASSIUM CHLORIDE RIDER 10 MEQ/100 ML PREMIX IV PRN (14:19)
[2021-09-23] MEDS: LACTATED RINGERS 1,000 ML IV SCH ×2 (21:38→21:39)
[2021-09-24] MEDS: LACTATED RINGERS 1,000 ML IV SCH ×2 (00:52→22:45)
[2021-09-24] MEDS: INSULIN LISPRO 100 UNIT/ML SUBCUT SCH ×5 (01:50→22:44)
[2021-09-24] MEDS: PIPERACILLIN/TAZOBACTAM 3,375 MG in SODIUM CHLORIDE 0.9% 100 ML IV SCH ×3 (02:24→17:16)
[2021-09-24] MEDS: ONDANSETRON 4 MG/2 ML VIAL IV PRN (05:30)
[2021-09-24] MEDS: ARFORMOTEROL 15 MCG/2 ML NEB RESP TX SCH ×2 (07:03→19:48)
[2021-09-24 07:59] LABS: Basophils % 0.1 % (0.0-0.8); Eosinophils % 0.1 % (0.00-10.9); Hematocrit 24.9 VOL% (35.7-47.0); Hemoglobin 7.9 GM/DL (12.0-16.0); Immature Granulocytes % 2.1 %; Immature Granulocytes Absolute 0.36 #; Lymphocytes # 1.6 10*3/uL (1.4-4.0); Lymphocytes % 9.8 % (21.3-54.2); Mean Corpuscular HGB Conc 31.7 GM/DL (32-36); Mean Corpuscular Volume 71.8 FL (87-102); Mean Platelet Volume 8.7 FL (9.6-12.0); Monocytes % 7.2 % (1.7-12.7); NRBC # 0.04 10*3/uL; Neutrophils % 80.7 % (38.7-73.9); Platelet Count 402 T/CUMM (130-400); Red Blood Count 3.47 MC/CUMM (3.8-5.5); Red Cell Distribution Width 17.6 % (9.3-17.3); White Blood Count 16.8 T/CUMM (4-12)
[2021-09-24 08:23] LABS: Albumin 1.6 G/DL (3.4-5.0); Bilirubin,Total 0.7 MG/DL (0.20-1.00); Calcium 8.1 MG/DL (8.5-10.1); Osmolality,Calculated 287.6 MOS/KG (273-304); Potassium 2.7 MMOL/L (3.5-5.1); Total Protein 5.6 G/DL (6.4-8.2)
[2021-09-24] MEDS: amLODIPine 5 MG TABLET PO SCH (08:31)
[2021-09-24] MEDS: PANTOPRAZOLE 40 MG VIAL IV SCH (08:31)
[2021-09-24] MEDS: SPIRONOLACTONE 25 MG TABLET PO SCH (08:31)
[2021-09-24] MEDS: HYDROCORTISONE 100 MG VIAL IV SCH ×2 (08:31→20:57)
[2021-09-24] MEDS ORDERED: POTASSIUM CHLORIDE 20 MEQ TABLET PO ONE (11:40)
[2021-09-24] MEDS ORDERED: MAGNESIUM OXIDE 400 MG TABLET PO ONE (11:43)
[2021-09-25] MEDS: PIPERACILLIN/TAZOBACTAM 3,375 MG in SODIUM CHLORIDE 0.9% 100 ML IV SCH ×2 (02:55→09:57)
[2021-09-25] MEDS: LACTATED RINGERS 1,000 ML IV SCH (02:55)
[2021-09-25] MEDS: ARFORMOTEROL 15 MCG/2 ML NEB RESP TX SCH (07:15)
[2021-09-25] MEDS: INSULIN LISPRO 100 UNIT/ML SUBCUT SCH ×2 (08:08→12:42)
[2021-09-25] MEDS: SPIRONOLACTONE 25 MG TABLET PO SCH (09:42)
[2021-09-25] MEDS: amLODIPine 5 MG TABLET PO SCH (09:42)
[2021-09-25] MEDS: HYDROCORTISONE 100 MG VIAL IV SCH (09:57)
[2021-09-25] MEDS: PANTOPRAZOLE 40 MG VIAL IV SCH (09:57)
[2021-09-25 10:42] LABS: Basophils % 0.1 % (0.0-0.8); Eosinophils # 0.1 10*3/uL (0.0-0.87); Eosinophils % 0.3 % (0.00-10.9); Hematocrit 25.5 VOL% (35.7-47.0); Immature Granulocytes % 1.4 %; Immature Granulocytes Absolute 0.28 #; Lymphocytes # 1.5 10*3/uL (1.4-4.0); Lymphocytes % 7.5 % (21.3-54.2); Mean Corpuscular HGB Conc 31.4 GM/DL (32-36); Mean Corpuscular Volume 72.4 FL (87-102); Mean Platelet Volume 8.9 FL (9.6-12.0); Monocytes % 4.8 % (1.7-12.7); NRBC # 0.03 10*3/uL; Neutrophils % 85.9 % (38.7-73.9); Platelet Count 432 T/CUMM (130-400); Red Blood Count 3.52 MC/CUMM (3.8-5.5); Red Cell Distribution Width 17.2 % (9.3-17.3); White Blood Count 20.1 T/CUMM (4-12)
[2021-09-25 11:02] LABS: Eosinophils 2 % (0-10); Hypochromasia 1+; Lymphocytes 4 % (20-55); Microcytosis 1+; Platelet Estimate Adequate; Segmented Neutrophils 93 % (50-85); Total Cells Counted 100
[2021-09-25 11:07] LABS: Alanine Aminotransferase 13 U/L (13-56); Albumin 1.6 G/DL (3.4-5.0); Alkaline Phosphatase 123 U/L (45-117); Aspartate Amino Transferase 28 U/L (0-37); Bilirubin,Total < 0.39 MG/DL (0.20-1.00); Blood Urea Nitrogen 6 MG/DL (7-18); Calcium 7.8 MG/DL (8.5-10.1); Carbon Dioxide 24 MMOL/L (21-32); Estimated Glom Filtration Rate 69 ML/MIN; Glucose 108 MG/DL (74-106); Osmolality,Calculated 288.6 MOS/KG (273-304); Potassium 2.9 MMOL/L (3.5-5.1); Sodium 146 MMOL/L (136-145); Total Protein 5.7 G/DL (6.4-8.2)
[2021-09-25] MEDS ORDERED: POTASSIUM CHLORIDE 20 MEQ TABLET PO ONE (12:17)
[2021-09-25] MEDS ORDERED: MAGNESIUM OXIDE 400 MG TABLET PO ONE (12:22)
[2021-09-25 12:45] VITALS: BP 133/64
== END 2021-09-25 14:00 | disposition home health service (06) | DRG 329 ==
LOC: N.ED 10:13 → N.EDINP 12:17 → SUATTDRO 12:17 → N.2W 14:40 → N.CC 09-15 15:11 → N.2W 09-19 10:02
PROVIDERS: ADMIT Internal Medicine Geriatric Medicine; ATTEND Internal Medicine
PROC: COLONSP (2021-09-15 09:05)